=== PATIENT | female | born 1990 | race Hispanic/Latino ===

== ENCOUNTER 2016-11-17 11:55 | Emergency (ER) | payer SELFPAY ==
[2016-11-17] MEDS ORDERED: NORCO 5/325 PO ONE (18:00)
--- NOTE | 2016-11-17 18:31 | Emergency Department Report ---
Upper Extremity - HPI Chief Complaint: Extremity Injury, Upper Stated Complaint: SWOLLEN LEFT ARM Time Seen by Provider: 11/17/16 17:23 Upper Extremity: Left Arm (pain and left inner arm) Severity: moderate Symptoms: Yes Pain with Movement, Yes Swelling, No Deformity, No Limited Range of Movement, No Numbness, No Weakness, No Bruising/Ecchymosis, No Laceration or Abrasion Other History: 26-year-old female past medical history cholecystectomy presents with complaint of pain to the left inner bicep region. Patient states she had control implant placed 2 weeks ago and has been experiencing intermittent pain radiating from the left bicep downward over the last 2 weeks. Denies any fevers chills no redness of skin no pus drainage. ED Review of Systems ROS: Stated complaint: SWOLLEN LEFT ARM Other details as noted in HPI Constitutional: denies: chills, fever Eyes: denies: eye pain, eye discharge, vision change ENT: denies: ear pain, throat pain Respiratory: denies: cough, shortness of breath, wheezing Cardiovascular: denies: chest pain, palpitations Endocrine: no symptoms reported Gastrointestinal: denies: abdominal pain, nausea, diarrhea Genitourinary: denies: urgency, dysuria, discharge Musculoskeletal: denies: back pain, joint swelling, arthralgia Skin: denies: rash, lesions Neurological: denies: headache, weakness, paresthesias Psychiatric: denies: anxiety, depression Hematological/Lymphatic: denies: easy bleeding, easy bruising ED Past Medical Hx - Past Medical History Hx Hypertension: No Hx Congestive Heart Failure: No Hx Diabetes: No Hx Deep Vein Thrombosis: No Hx GERD: Yes Hx Renal Disease: No Hx Sickle Cell Disease: No Hx Headaches / Migraines: Yes (MIGRAINES) Hx Seizures: No Hx Asthma: No Hx COPD: No Hx HIV: No - Surgical History Hx Cholecystectomy: Yes Additional Surgical History: laparoscopy, lipoma removed from lower back - Social History Smoking Status: Never Smoker Substance Use Type: Prescribed - Medications Home Medications: Home Medications Medication Instructions Recorded Confirmed Last Taken Type Ibuprofen [Motrin] 800 mg PO Q8HR PRN #30 tablet 11/07/15 Unknown Rx traMADol [Ultram 50 MG tab] 50 mg PO Q6HR PRN #20 tablet 11/07/15 Unknown Rx Naproxen [Naprosyn TAB] 500 mg PO BID PRN #25 tablet 11/17/16 Unknown Rx traMADol [Ultram 50 MG tab] 50 mg PO Q6HR PRN #10 tablet 11/17/16 Unknown Rx Upper Extremity Exam - Exam General: Vital signs noted. No distress. Alert and acting appropriately. Head and Torso: No HEENT Abnormality, No Neck Tenderness, No Chest/Lungs Abnormality, No Abdominal Tenderness, No Back Tenderness Shoulder Exam: Yes Normal Range of Motion in Shoulder, No Shoulder Tenderness, No Clavicle Tenderness, No Shoulder Deformity, No AC Joint Tenderness Arm Exam: Yes Arm/Humerus Tenderness (pain and left inner bicep region no visible signs of erythema no visible abscess), No Arm Deformity Elbow: No Elbow Tenderness, No Normal Range of Motion in Elbow, No Elbow Deformity Forearm: No Forearm Tenderness, No Forearm Deformity, No Pain with Pronation, No Pain with Supination Wrist: Yes Normal ROM in Wrist, No Wrist Tenderness, No Wrist Deformity, No Snuffbox Tenderness, No Pain with Axial Thumb Compression Hand: Yes Normal ROM in Digit(s), No Hand Tenderness, No Hand Deformity, No Digit Tenderness, No Digit(s) Deformity, No Tendon Dysfunction CMS Exam: Yes Normal Distal Pulses, Yes Normal Capillary Refill, No Broken Skin , No Normal Distal Sensation Front/Back of Body, Lg (Color): 1 - Mild pain on palpation here NO palpable fluctuance ED Course Vital Signs 11/17/16 13:52 Temperature 98.5 F Pulse Rate 83 Respiratory 16 Rate Blood Pressure 123/85 O2 Sat by Pulse 100 Oximetry ED Medical Decision Making - Medical Decision Making A/P: Pain associated with foreign body/left bicep implant 1-x-ray shows implant at level of the left inner bicep. Implant looks intact. 2-naproxen when necessary prefer pain short course tramadol for severe pain 3-advised patient to return to the ED if she experiences any pus drainage redness fever chills associated with arm pain. Range of motion left arm fully intact 4- referral for left upper extremity or in the morning. Patient has low well score but since she has mild swelling and left arm was sent for outpatient Doppler Critical care attestation.: If time is entered above; I have spent that time in minutes in the direct care of this critically ill patient, excluding procedure time. ED Disposition Clinical Impression: Left upper arm pain Disposition: DISCHARGED TO HOME OR SELFCARE Is pt being admited?: No Does the pt Need Aspirin: No Condition: Stable Instructions: Musculoskeletal Pain (ED) Additional Instructions: Patient advised to return to [facility] tomorrow with order for left upper extremity duplex Prescriptions: Naproxen [Naprosyn TAB] 500 mg PO BID PRN #25 tablet PRN Reason: Pain traMADol [Ultram 50 MG tab] 50 mg PO Q6HR PRN #10 tablet PRN Reason: Pain Referrals: [facility] [Provider Group] - 3-5 Days Time of Disposition: 19:53
[2016-11-17 22:15] VITALS: BP 126/86
--- NOTE | 2016-11-18 08:11 | XRay Report ---
LEFT HUMERUS TWO VIEWS: 11/17/16 17:59:00 CLINICAL: Swelling at site of control insertion. FINDINGS: No fracture or dislocation. Normal alignment at the shoulder and elbow. An implanted control device is identified in the medial distal soft tissues of the upper arm. No soft tissue air. IMPRESSION: Negative with a control implant in the soft tissues.
== END 2016-11-17 22:15 | disposition home or self-care (01) ==
LOC: ED 11:55
DX: M79.622 Pain in left upper arm (principal); K21.9 Gastro-esophageal reflux disease without esophagitis; G43.909 Migraine, unspecified, not intractable, without status migrainosus; Z90.49 Acquired absence of other specified parts of digestive tract

== ENCOUNTER 2017-02-09 16:42 | Emergency (ER) | payer MEDICAID ==
[2017-02-09] MEDS: NACL 0.9% 1000 ML 1,000 ML IV ONE (20:26)
[2017-02-09 20:42] LABS: Basophils % (Auto) 1.1 % (0.0-1.8); Eosinophils % (Auto) 1.4 % (0.0-4.3); Hematocrit 39.7 % (30.3-42.9); Hemoglobin 13.9 gm/dl (10.1-14.3); Mean Corpuscular HGB Conc 35 % (30-34); Mean Corpuscular Hemoglobin 31 pg (28-32); Mean Corpuscular Volume 89 fl (79-97); Platelet Count 245 K/mm3 (140-440); Red Blood Count 4.46 M/mm3 (3.65-5.03); Red Cell Distribution Width 13.1 % (13.2-15.2); White Blood Count 9.9 K/mm3 (4.5-11.0)
[2017-02-09 21:15] LABS: Anion Gap 15 mmol/L; Blood Urea Nitrogen 8 mg/dL (7-17); Calcium 9.5 mg/dL (8.4-10.2); Carbon Dioxide 26 mmol/L (22-30); Chloride 104.9 mmol/L (98-107); Glucose 88 mg/dL (65-100); Potassium 3.8 mmol/L (3.6-5.0); Sodium 142 mmol/L (137-145)
[2017-02-09] MEDS: REGLAN IV ONE (21:40)
[2017-02-09] MEDS: BENADRYL IV ONE (21:40)
[2017-02-09] MEDS: TORADOL IVP ONE (21:40)
--- NOTE | 2017-02-09 23:09 | Emergency Department Report ---
ED Headache HPI - General Chief Complaint: Headache Stated Complaint: POSS ALLERGIC REACTION/NEW MEDS Source: patient, RN notes reviewed Exam Limitations: no limitations - History of Present Illness Initial Comments: 26 year old female presents to ED with migraine classical headaches. patient states she has history of migraines but is currently on no medication. patient states she also has N/V and photophobia today and that is classical of her typical migraines. patient states this is not the worst headache of her life. patient also states she just started Metformin prescribed to her by her PCP for weight loss. patient is stable, neurologically intact and in no acute distress. Timing/Duration: 24 hours, constant Quality: moderate Head Injury Location: frontal, occipital Recent Head Trauma: chronic headaches Modifying Factors: improves with: exposure to light Associated Symptoms: nausea/vomiting. denies: confusion, fatigue, facial pain, fever/chills, loss of consciousness, numbness in legs/feet, seizures, stiff neck , vision changes, weakness Allergies/Adverse Reactions: Allergies No Known Allergies Allergy (Verified 11/07/15 11:10) Home Medications: Ambulatory Orders Ibuprofen [Motrin] 800 mg PO Q8HR PRN #30 tablet 11/07/15 traMADol [Ultram 50 MG tab] 50 mg PO Q6HR PRN #20 tablet 11/07/15 Naproxen [Naprosyn TAB] 500 mg PO BID PRN #25 tablet 11/17/16 traMADol [Ultram 50 MG tab] 50 mg PO Q6HR PRN #10 tablet 11/17/16 Ketorolac [Toradol] 10 mg PO Q6H PRN #20 tablet 02/09/17 Metoclopramide [Reglan] 10 mg PO BID #10 tab 02/09/17 ED Review of Systems ROS: Stated complaint: POSS ALLERGIC REACTION/NEW MEDS Other details as noted in HPI Constitutional: denies: chills, fever Eyes: denies: eye pain, eye discharge, vision change ENT: denies: ear pain, throat pain Respiratory: denies: cough, shortness of breath, wheezing Cardiovascular: denies: chest pain, palpitations Endocrine: no symptoms reported Gastrointestinal: nausea, vomiting. denies: abdominal pain, diarrhea Genitourinary: denies: urgency, dysuria, discharge Musculoskeletal: denies: back pain, joint swelling, arthralgia Skin: denies: rash, lesions Neurological: headache. denies: weakness, numbness, paresthesias, confusion, abnormal gait, vertigo Psychiatric: denies: anxiety, depression Hematological/Lymphatic: denies: easy bleeding, easy bruising ED Past Medical Hx - Past Medical History Hx Hypertension: No Hx Congestive Heart Failure: No Hx Diabetes: No Hx Deep Vein Thrombosis: No Hx GERD: Yes Hx Renal Disease: No Hx Sickle Cell Disease: No Hx Headaches / Migraines: Yes (MIGRAINES) Hx Seizures: No Hx Asthma: No Hx COPD: No Hx HIV: No - Surgical History Hx Cholecystectomy: Yes Additional Surgical History: laparoscopy, lipoma removed from lower back - Social History Smoking Status: Never Smoker Substance Use Type: None - Medications Home Medications: Home Medications Medication Instructions Recorded Confirmed Last Taken Type Ibuprofen [Motrin] 800 mg PO Q8HR PRN #30 tablet 11/07/15 Unknown Rx traMADol [Ultram 50 MG tab] 50 mg PO Q6HR PRN #20 tablet 11/07/15 Unknown Rx Naproxen [Naprosyn TAB] 500 mg PO BID PRN #25 tablet 11/17/16 Unknown Rx traMADol [Ultram 50 MG tab] 50 mg PO Q6HR PRN #10 tablet 11/17/16 Unknown Rx Ketorolac [Toradol] 10 mg PO Q6H PRN #20 tablet 02/09/17 Unknown Rx Metoclopramide [Reglan] 10 mg PO BID #10 tab 02/09/17 Unknown Rx ED Physical Exam - General Limitations: No Limitations General appearance: alert, in no apparent distress - Head Head exam: Present: atraumatic, normocephalic - Eye Eye exam: Present: normal appearance - ENT ENT exam: Present: mucous membranes moist - Neck Neck exam: Present: normal inspection - Respiratory Respiratory exam: Present: normal lung sounds bilaterally. Absent: respiratory distress, wheezes - Cardiovascular Cardiovascular Exam: Present: regular rate, normal rhythm. Absent: systolic murmur, diastolic murmur, rubs, gallop - GI/Abdominal GI/Abdominal exam: Present: soft, normal bowel sounds. Absent: distended, tenderness - Extremities Exam Extremities exam: Present: normal inspection - Back Exam Back exam: Present: normal inspection, full ROM - Neurological Exam Neurological exam: Present: alert, oriented X3, normal gait - Expanded Neurological Exam Expanded Neurological exam: Absent: innattentive Patient oriented to: Present: person, place, time Speech: Present: fluid speech Cranial nerves: EOM's Intact: Normal, Tongue Deviation: Normal Cerebellar function: Finger to Nose: Normal Upper motor neuron: Pronator Drift: Normal Sensory exam: Upper Extremity Light Touch: Normal, Lower Extremity Light Touch: Normal Motor strength exam: RUE: 5, LUE: 5, RLE: 5, LLE: 5 DTR: knee (R): 2+, knee (L): 2+ Best Eye Response ([place]): (4) open spontaneously Best Motor Response ([place]): (6) obeys commands Best Verbal Response ([place]): (5) oriented Iza Total: 15 - Psychiatric Psychiatric exam: Present: normal affect, normal mood - Skin Skin exam: Present: warm, dry, intact, normal color. Absent: rash ED Course Vital Signs 02/09/17 02/09/17 16:46 21:40 Temperature 98.4 F Pulse Rate 92 H Respiratory 16 20 Rate Blood Pressure 131/88 O2 Sat by Pulse 98 Oximetry ED Medical Decision Making - Lab Data Result diagrams: 02/09/17 20:32 02/09/17 20:32 Labs 02/09/17 02/09/17 02/09/17 20:32 20:32 20:32 WBC 9.9 RBC 4.46 Hgb 13.9 Hct 39.7 MCV 89 MCH 31 MCHC 35 H RDW 13.1 L Plt Count 245 Lymph % (Auto) 30.7 [place] % (Auto) 6.6 Eos % (Auto) 1.4 Baso % (Auto) 1.1 Lymph # 3.0 [place] # 0.6 Eos # 0.1 Baso # 0.1 Seg Neutrophils % 60.2 Seg Neutrophils # 5.9 Sodium 142 Potassium 3.8 Chloride 104.9 Carbon Dioxide 26 Anion Gap 15 BUN 8 Creatinine 0.5 L Estimated GFR > 60 BUN/Creatinine Ratio 16.00 Glucose 88 Calcium 9.5 HCG, Qual Negative - Medical Decision Making 26 year old female presents to ED with migraine. patient has resolved pain on re examination after IV fluids, IV toradol, benadryl, reglan. patient has neg preg test. patient is stable, neurologically intact and in no acute distress. Critical care attestation.: If time is entered above; I have spent that time in minutes in the direct care of this critically ill patient, excluding procedure time. ED Disposition Clinical Impression: Migraine Qualifiers: Migraine type: with aura Status migrainosus presence: without status migrainosus Intractability: not intractable Qualified Code(s): G43.109 - Migraine with aura, not intractable, without status migrainosus Disposition: TO HOME OR SELFCARE Is pt being admited?: No Does the pt Need Aspirin: No Condition: Stable Instructions: Migraine Headache (ED) Prescriptions: Ketorolac [Toradol] 10 mg PO Q6H PRN #20 tablet PRN Reason: Pain Metoclopramide [Reglan] 10 mg PO BID #10 tab Referrals: MIREYA FONG MD [Primary Care Provider] - 3-5 Days Forms: Work/School Release Form(ED)
[2017-02-09 23:12] VITALS: BP 132/82
== END 2017-02-10 00:05 | disposition home or self-care (01) ==
LOC: ED 16:42
DX: G43.109 Migraine with aura, not intractable, without status migrainosus (principal); K21.9 Gastro-esophageal reflux disease without esophagitis
CPT/HCPCS: 36415; 80048; 84703; 85025; 96361; 96374; 96375; 99283; J1200; J1885; J2765; J7030

== ENCOUNTER 2018-09-06 14:20 | Emergency (ER) | payer MEDICAID ==
--- NOTE | 2018-09-06 14:57 | Emergency Department Report ---
Blank Doc - Documentation Documentation: 28-year-old female that presents with pelvic pain and bilateral legs weakness. Stated has vagianl discharge. Denies any vaginal bleeding or urinary symptoms. Denies any other complaints or symptoms. This initial assessment diagnostic orders/clinical plan/treatment(s) is/are subject to change based on patient's health status, clinical progression and re- assessment by fellow clinical providers in the ED. Further treatment and workup at subsequent clinical providers discretion. Patient/guardians urged not to elope from ED s their condition may be serious if not clinically assessed and managed. Initial orders include: 1-Patient sent to [facility] for further evaluation and treatment 2- Labs 3- UA 4-wet prep
[2018-09-06 15:27] LABS: Basophils # (Auto) 0.1 K/mm3 (0.0-0.1); Basophils % (Auto) 1.2 % (0.0-1.8); Eosinophils # (Auto) 0.1 K/mm3 (0.0-0.4); Eosinophils % (Auto) 1.1 % (0.0-4.3); Hematocrit 42.3 % (30.3-42.9); Hemoglobin 14.9 gm/dl (10.1-14.3); Lymphocytes # (Auto) 2.5 K/mm3 (1.2-5.4); Lymphocytes % (Auto) 25.4 % (13.4-35.0); Mean Corpuscular HGB Conc 35 % (30-34); Mean Corpuscular Volume 89 fl (79-97); Monocytes # (Auto) 0.7 K/mm3 (0.0-0.8); Monocytes % (Auto) 6.7 % (0.0-7.3); Platelet Count 286 K/mm3 (140-440); Red Blood Count 4.77 M/mm3 (3.65-5.03); Red Cell Distribution Width 13.2 % (13.2-15.2)
[2018-09-06 16:10] LABS: BUN/Creatinine Ratio 15; Blood Urea Nitrogen 9 mg/dL (7-17); Calcium 9.6 mg/dL (8.4-10.2); Hemolysis Index 101
[2018-09-06 16:19] LABS: Bacteria,Urine 1+ /HPF (Negative); Bilirubin,Urine NEG (Negative); Blood,Urine SM (Negative); Color,Urine Yellow (Yellow); Protein,Urine <15 mg/dL mg/dL (Negative); Urobilinogen,Urine < 2.0 mg/dL (<2.0)
[2018-09-06 16:20] LABS: Alanine Aminotransferase 33 units/L (7-56)
--- NOTE | 2018-09-06 19:13 | Emergency Department Report ---
ED Female HPI - General Chief complaint: Abdominal Pain Stated complaint: PELVIC PAIN/LEG PAIN Time Seen by Provider: 09/06/18 14:55 Source: patient Mode of arrival: Ambulatory Limitations: No Limitations - History of Present Illness Initial comments: This is a 28-year-old female who presents with vaginal discharge and pelvic pain since yesterday. Patient reports pain is sharp sensation that is intermittent. Her last menstrual period was 11/03/2016 . She also complains of discomfort where nexplanon control implant is on left upper extremity. Patient states she is sexually active, and only one partner. She denies frequency, urgency, dysuria or vaginal bleeding. MD Complaint: vaginal discharge, pelvic pain Onset/Timin -: days(s) Location: suprapubic Radiation: non-radiating Severity: moderate Severity scale (0 -10): 7 Quality: stabbing Consistency: intermittent Improves with: none Worsens with: none Are you Now?: No Last Menstrual Period: 11/03/16 (implanted control) EDC: 08/10/17 Associated Symptoms: vaginal discharge - Related Data Sexually active: Yes : 3 Para: 3 A: 0 Previous Rx's Medication Instructions Recorded Last Taken Type Ibuprofen [Motrin] 800 mg PO Q8HR PRN #30 tablet 11/07/15 Unknown Rx traMADol [Ultram 50 MG tab] 50 mg PO Q6HR PRN #20 tablet 11/07/15 Unknown Rx Naproxen [Naprosyn TAB] 500 mg PO BID PRN #25 tablet 11/17/16 Unknown Rx traMADol [Ultram 50 MG tab] 50 mg PO Q6HR PRN #10 tablet 11/17/16 Unknown Rx Ketorolac [Toradol] 10 mg PO Q6H PRN #20 tablet 02/09/17 Unknown Rx Metoclopramide [Reglan] 10 mg PO BID #10 tab 02/09/17 Unknown Rx Allergies Allergy/AdvReac Type Severity Reaction Status Date / Time No Known Allergies Allergy Verified 11/07/15 11:10 ED Review of Systems ROS: Stated complaint: PELVIC PAIN/LEG PAIN Other details as noted in HPI Constitutional: denies: chills, fever Respiratory: denies: cough, shortness of breath, wheezing Cardiovascular: denies: chest pain, palpitations Gastrointestinal: abdominal pain. denies: nausea, diarrhea Genitourinary: discharge. denies: urgency, dysuria Musculoskeletal: denies: back pain, joint swelling, arthralgia Skin: denies: rash, lesions Neurological: denies: headache, weakness, paresthesias Psychiatric: denies: anxiety, depression ED Past Medical Hx - Past Medical History Hx Hypertension: No Hx Congestive Heart Failure: No Hx Diabetes: No Hx Deep Vein Thrombosis: No Hx GERD: Yes Hx Renal Disease: No Hx Sickle Cell Disease: No Hx Headaches / Migraines: Yes (MIGRAINES) Hx Seizures: No Hx Asthma: No Hx COPD: No Hx HIV: No - Surgical History Hx Cholecystectomy: Yes Additional Surgical History: laparoscopy, lipoma removed from lower back. BC implant-2017 - Social History Smoking Status: Never Smoker Substance Use Type: None - Medications Home Medications: Home Medications Medication Instructions Recorded Confirmed Last Taken Type Ibuprofen [Motrin] 800 mg PO Q8HR PRN #30 tablet 11/07/15 Unknown Rx traMADol [Ultram 50 MG tab] 50 mg PO Q6HR PRN #20 tablet 11/07/15 Unknown Rx Naproxen [Naprosyn TAB] 500 mg PO BID PRN #25 tablet 11/17/16 Unknown Rx traMADol [Ultram 50 MG tab] 50 mg PO Q6HR PRN #10 tablet 11/17/16 Unknown Rx Ketorolac [Toradol] 10 mg PO Q6H PRN #20 tablet 02/09/17 Unknown Rx Metoclopramide [Reglan] 10 mg PO BID #10 tab 02/09/17 Unknown Rx ED Physical Exam - General Limitations: No Limitations General appearance: alert, in no apparent distress, obese - Respiratory Respiratory exam: Present: normal lung sounds bilaterally. Absent: respiratory distress - Cardiovascular Cardiovascular Exam: Present: regular rate, normal rhythm. Absent: systolic murmur, diastolic murmur, rubs, gallop - GI/Abdominal GI/Abdominal exam: Present: soft, normal bowel sounds. Absent: distended, tend erness, guarding, rebound, rigid, organomegaly, mass - External exam: Present: normal external exam Speculum exam: Present: erythema, vaginal discharge (malodorous greenish discharge). Absent: cervical discharge, vaginal bleeding, foreign body, tissue, laceration Bi-manual exam: Present: cervical motion tendernes - Back Exam Back exam: Absent: CVA tenderness (R), CVA tenderness (L) - Neurological Exam Neurological exam: Present: alert, oriented X3 - Psychiatric Psychiatric exam: Present: normal affect, normal mood - Skin Skin exam: Present: warm, dry, intact, normal color. Absent: rash ED Course Vital Signs 09/06/18 09/06/18 09/06/18 14:21 14:57 19:25 Temperature 97.8 F 98 F 98.6 F Pulse Rate 107 H 104 H 93 H Respiratory 18 18 16 Rate Blood Pressure 137/87 126/88 Blood Pressure 137/87 [Right] O2 Sat by Pulse 98 98 99 Oximetry 09/06/18 20:04 Temperature Pulse Rate Respiratory 16 Rate Blood Pressure Blood Pressure [Right] O2 Sat by Pulse 99 Oximetry ED Medical Decision Making - Lab Data Result diagrams: 09/06/18 15:11 09/06/18 15:11 Lab Results 09/06/18 09/06/18 09/06/18 Range/Units 15:11 15:11 Unknown WBC 9.9 (4.5-11.0) K/mm3 RBC 4.77 (3.65-5.03) M/mm3 Hgb 14.9 H (10.1-14.3) gm/dl Hct 42.3 (30.3-42.9) % MCV 89 (79-97) fl MCH 31 (28-32) pg MCHC 35 H (30-34) % RDW 13.2 (13.2-15.2) % Plt Count 286 (140-440) K/mm3 Lymph % (Auto) 25.4 (13.4-35.0) % [place] % (Auto) 6.7 (0.0-7.3) % Eos % (Auto) 1.1 (0.0-4.3) % Baso % (Auto) 1.2 (0.0-1.8) % Lymph # 2.5 (1.2-5.4) K/mm3 [place] # 0.7 (0.0-0.8) K/mm3 Eos # 0.1 (0.0-0.4) K/mm3 Baso # 0.1 (0.0-0.1) K/mm3 Seg Neutrophils % 65.6 (40.0-70.0) % Seg Neutrophils # 6.5 (1.8-7.7) K/mm3 Sodium 141 (137-145) mmol/L Potassium 4.2 (3.6-5.0) mmol/L Chloride 103.4 (98-107) mmol/L Carbon Dioxide 24 (22-30) mmol/L Anion Gap 18 mmol/L BUN 9 (7-17) mg/dL Creatinine 0.6 L (0.7-1.2) mg/dL Estimated GFR > 60 ml/min BUN/Creatinine Ratio 15 % Glucose 97 (65-100) mg/dL Calcium 9.6 (8.4-10.2) mg/dL Total Bilirubin 0.70 (0.1-1.2) mg/dL AST 29 (5-40) units/L ALT 33 (7-56) units/L Alkaline Phosphatase 85 (35-129) units/L Total Protein 7.5 (6.3-8.2) g/dL Albumin 4.0 (3.9-5) g/dL Albumin/Globulin Ratio 1.1 % Urine Color Yellow (Yellow) Urine Turbidity Clear (Clear) Urine pH 5.0 (5.0-7.0) Ur Specific [place] 1.012 (1.003-1.030) Urine Protein <15 mg/dl (Negative) mg/dL Urine Glucose (UA) Neg (Negative) mg/dL Urine Ketones Neg (Negative) mg/dL Urine Blood Sm (Negative) Urine Nitrite Neg (Negative) Urine Bilirubin Neg (Negative) Urine Urobilinogen < 2.0 (<2.0) mg/dL Ur Leukocyte Esterase Neg (Negative) Urine WBC (Auto) 1.0 (0.0-6.0) /HPF Urine RBC (Auto) 5.0 (0.0-6.0) /HPF U Epithel Cells (Auto) 1.0 (0-13.0) /HPF Urine Bacteria (Auto) 1+ (Negative) /HPF Urine HCG, Qual (Negative) 09/06/18 Range/Units Unknown WBC (4.5-11.0) K/mm3 RBC (3.65-5.03) M/mm3 Hgb (10.1-14.3) gm/dl Hct (30.3-42.9) % MCV (79-97) fl MCH (28-32) pg MCHC (30-34) % RDW (13.2-15.2) % Plt Count (140-440) K/mm3 Lymph % (Auto) (13.4-35.0) % [place] % (Auto) (0.0-7.3) % Eos % (Auto) (0.0-4.3) % Baso % (Auto) (0.0-1.8) % Lymph # (1.2-5.4) K/mm3 [place] # (0.0-0.8) K/mm3 Eos # (0.0-0.4) K/mm3 Baso # (0.0-0.1) K/mm3 Seg Neutrophils % (40.0-70.0) % Seg Neutrophils # (1.8-7.7) K/mm3 Sodium (137-145) mmol/L Potassium (3.6-5.0) mmol/L Chloride (98-107) mmol/L Carbon Dioxide (22-30) mmol/L Anion Gap mmol/L BUN (7-17) mg/dL Creatinine (0.7-1.2) mg/dL Estimated GFR ml/min BUN/Creatinine Ratio % Glucose (65-100) mg/dL Calcium (8.4-10.2) mg/dL Total Bilirubin (0.1-1.2) mg/dL AST (5-40) units/L ALT (7-56) units/L Alkaline Phosphatase (35-129) units/L Total Protein (6.3-8.2) g/dL Albumin (3.9-5) g/dL Albumin/Globulin Ratio % Urine Color (Yellow) Urine Turbidity (Clear) Urine pH (5.0-7.0) Ur Specific [place] (1.003-1.030) Urine Protein (Negative) mg/dL Urine Glucose (UA) (Negative) mg/dL Urine Ketones (Negative) mg/dL Urine Blood (Negative) Urine Nitrite (Negative) Urine Bilirubin (Negative) Urine Urobilinogen (<2.0) mg/dL Ur Leukocyte Esterase (Negative) Urine WBC (Auto) (0.0-6.0) /HPF Urine RBC (Auto) (0.0-6.0) /HPF U Epithel Cells (Auto) (0-13.0) /HPF Urine Bacteria (Auto) (Negative) /HPF Urine HCG, Qual Negative (Negative) - Medical Decision Making This is a 28-year-old female who presents with vaginal discharge and pelvic pain for 1 day. Patient was examined by me. Vitals are stable and in no acute distress. Labs ordered and pelvic exam. Wet prep negative for Trichomonas, clue cells, a niece. Gonorrhea and chlamydia pending. Ultrasound obtained and dictated by room radiologist. FINAL Study within normal limits. 1.2 centimeter left ovarian cyst noted. Empirically treated with Rocephin 250 mg IM and azithromycin 1 g by mouth. Ovarian cyst, follow up with geoscientist. Discharged home in stable condition. Discussed prevention options. F/U with PCP or Health Department. Critical care attestation.: If time is entered above; I have spent that time in minutes in the direct care of this critically ill patient, excluding procedure time. ED Disposition Clinical Impression: Vaginal discharge, Pelvic pain Ovarian cyst Qualifiers: Laterality: left Qualified Code(s): N83.202 - Unspecified ovarian cyst, left side Disposition: - TO HOME OR SELFCARE Is pt being admited?: No Does the pt Need Aspirin: No Condition: Stable Instructions: Abdominal Pain (ED), Ovarian Cyst (ED) Additional Instructions: Follow-up with a geoscientist for continued care of ovarian cyst. Referrals: [facility] [Outside] - 3-5 Days [facility] [Provider Group] - 3-5 Days [facility] [Provider Group] - 3-5 Days [facility] [Provider Group] - 3-5 Days Time of Disposition: 22:44
[2018-09-06 19:25] LABS: HCG Qualitative,Urine Negative (Negative)
--- NOTE | 2018-09-06 22:15 | Ultrasound Report ---
FINAL REPORT EXAM: US TRANSVAGINAL HISTORY: pelvic pain TECHNIQUE: Ultrasound pelvis transvaginal PRIORS: None. FINDINGS: Uterus measures 7.8 x 3.4 x 4.6 centimeters There is no focal myometrial abnormality identified. Endometrial thickness is 0.21 centimeters. Right ovary is 2.0 x 1.0 x 2.3 centimeters the left ovary is 0.2 by 1.4 x 1.5 centimeters. 1.2 centim eter left ovarian cyst likely follicular. No free fluid identified in the pelvis. IMPRESSION: Study within normal limits. 1.2 centimeter left ovarian cyst noted
--- NOTE | 2018-09-06 22:16 | Ultrasound Report ---
FINAL REPORT EXAM: US PELVIC COMPLETE HISTORY: pelvic pain TECHNIQUE: Ultrasound pelvis transabdominal PRIORS: None. FINDINGS: Uterus measures 7.8 x 3.4 x 4.6 centimeters There is no focal myometrial abnormality identified. Endometrial thickness is 0.21 centimeters. Right ovary is 2.0 x 1.0 x 2.3 centimeters the left ovary is 0.2 by 1.4 x 1.5 centimeters. 1.2 centim eter left ovarian cyst likely follicular. No free fluid identified in the pelvis. IMPRESSION: Study within normal limits. 1.2 centimeter left ovarian cyst noted
[2018-09-06] MEDS ORDERED: ROCEPHIN IM ONE (22:45)
[2018-09-06] MEDS ORDERED: ZITHROMAX PO ONE (22:45)
[2018-09-06] MEDS ORDERED: XYLOCAINE 1% MPF 5 mL INFILTRATI ONE (22:45)
[2018-09-06 23:42] VITALS: BP 113/78
== END 2018-09-06 23:41 | disposition home or self-care (01) ==
LOC: ED 14:20
DX: N83.202 Unspecified ovarian cyst, left side (principal); K21.9 Gastro-esophageal reflux disease without esophagitis; G43.909 Migraine, unspecified, not intractable, without status migrainosus; Z90.49 Acquired absence of other specified parts of digestive tract
CPT/HCPCS: 36415; 76830; 76856; 80053; 81001; 81025; 85025; 87210; 87591; 96372; 99284; J0696

== ENCOUNTER 2019-03-23 17:30 | Emergency (ER) | payer MEDICAID ==
[2019-03-23 19:26] LABS: Basophils # (Auto) 0.1 K/mm3 (0.0-0.1); Basophils % (Auto) 0.7 % (0.0-1.8); Eosinophils # (Auto) 0.1 K/mm3 (0.0-0.4); Eosinophils % (Auto) 1.1 % (0.0-4.3); Hematocrit 47.1 % (30.3-42.9); Hemoglobin 16.1 gm/dl (10.1-14.3); Lymphocytes # (Auto) 2.9 K/mm3 (1.2-5.4); Lymphocytes % (Auto) 25.5 % (13.4-35.0); Mean Corpuscular HGB Conc 34 % (30-34); Mean Corpuscular Volume 90 fl (79-97); Monocytes # (Auto) 0.7 K/mm3 (0.0-0.8); Monocytes % (Auto) 5.8 % (0.0-7.3); Platelet Count 309 K/mm3 (140-440); Red Blood Count 5.21 M/mm3 (3.65-5.03); Red Cell Distribution Width 13.3 % (13.2-15.2)
[2019-03-23] MEDS ORDERED: NACL 0.9% 1000 ML 1,000 ML IV ONE (19:32)
[2019-03-23 19:36] LABS: Bacteria,Urine 1+ /HPF (Negative); Bilirubin,Urine NEG (Negative); Blood,Urine SM (Negative); Color,Urine Yellow (Yellow); Mucus,Urine 1+ /HPF; Protein,Urine <15 mg/dL mg/dL (Negative); Urobilinogen,Urine < 2.0 mg/dL (<2.0)
[2019-03-23 19:37] LABS: HCG Qualitative,Urine Negative (Negative)
[2019-03-23 19:41] LABS: BUN/Creatinine Ratio 16; Blood Urea Nitrogen 11 mg/dL (7-17); Calcium 9.7 mg/dL (8.4-10.2); Hemolysis Index 29
[2019-03-23] MEDS ORDERED: KEFLEX PO ONE (20:05)
[2019-03-23 20:10] LABS: Alanine Aminotransferase 36 units/L (7-56); Albumin 3.6 g/dL (3.9-5)
[2019-03-23 20:18] LABS: Bilirubin,Direct < 0.2 mg/dL (0-0.2)
--- NOTE | 2019-03-23 21:20 | XRay Report ---
CHEST PA AND LATERAL VIEWS INDICATION: weakness. COMPARISON: None. FINDINGS: Support devices: None. Heart: Within normal limits. Lungs/Pleura: No acute pulmonary or pleural findings. IMPRESSION: 1. No significant abnormality. Signer Name: Hernan Roche MD Signed: 03/23/2019 9:16 PM Workstation Name: [id number]
--- NOTE | 2019-03-23 21:20 | Emergency Department Report ---
ED General Adult HPI - General Chief complaint: Weakness Stated complaint: DIZZY/NAUSEA/HEADACHE Source: patient Mode of arrival: Ambulatory Limitations: No Limitations - History of Present Illness Initial comments: Patient is a 28-year-old Female with No past Medical History Presents to the ED with Complaint of Acute Onset since persistent diffuse body aches and pains, generalized weakness, lightheadedness, headache, back pain for the last 1 week, worse in the last 12 hours. Patient states that she went to donate plasma earlier but that her symptoms got worse and could not continue program. Patient denies syncope, chest pain, shortness of breath, fever, chills, sore throat, abdominal pain, dizziness, change in vision or vaginal bleeding. MD Complaint: Generalized weakness, lightheadedness, headache -: Sudden, hour(s) (12) Location: head, chest Radiation: non-radiation Severity scale (0 -10): 5 Quality: aching, dull Consistency: constant Improves with: none Worsens with: none Associated Symptoms: denies other symptoms, cough, headaches, loss of appetite, malaise, weakness. denies: confusion, chest pain, diaphoresis, fever/chills, nausea/vomiting, rash, seizure, shortness of breath, syncope Treatments Prior to Arrival: none - Related Data Previous Rx's Medication Instructions Recorded Last Taken Type Ibuprofen [Motrin] 800 mg PO Q8HR PRN #30 tablet 11/07/15 Unknown Rx traMADol [Ultram 50 MG tab] 50 mg PO Q6HR PRN #20 tablet 11/07/15 Unknown Rx Naproxen [Naprosyn TAB] 500 mg PO BID PRN #25 tablet 11/17/16 Unknown Rx traMADol [Ultram 50 MG tab] 50 mg PO Q6HR PRN #10 tablet 11/17/16 Unknown Rx Ketorolac [Toradol] 10 mg PO Q6H PRN #20 tablet 02/09/17 Unknown Rx Metoclopramide [Reglan] 10 mg PO BID #10 tab 02/09/17 Unknown Rx Ibuprofen [Motrin] 800 mg PO Q8HR PRN #20 tablet 03/23/19 Unknown Rx Meclizine [Antivert] 25 mg PO Q8H PRN #30 tablet 03/23/19 Unknown Rx cephALEXin [Keflex] 500 mg PO Q8HR #30 cap 03/23/19 Unknown Rx Allergies Allergy/AdvReac Type Severity Reaction Status Date / Time No Known Allergies Allergy Verified 11/07/15 11:10 ED Review of Systems ROS: Stated complaint: DIZZY/NAUSEA/HEADACHE Other details as noted in HPI Constitutional: malaise, weakness. denies: chills, fever Eyes: denies: eye pain, eye discharge, vision change ENT: other (frontal sinus headache and pressure). denies: ear pain, throat pain Respiratory: no symptoms reported. denies: cough, shortness of breath, SOB with exertion, SOB at rest, wheezing Cardiovascular: denies: chest pain, palpitations, dyspnea on exertion, edema, syncope, paroxysmal nocturnal dyspnea Endocrine: no symptoms reported Gastrointestinal: denies: abdominal pain, nausea, diarrhea, constipation, hematemesis, hematochezia Genitourinary: denies: urgency, dysuria, discharge Musculoskeletal: arthralgia, myalgia. denies: back pain, joint swelling Skin: denies: rash, lesions Neurological: headache. denies: weakness, paresthesias Psychiatric: denies: anxiety, depression Hematological/Lymphatic: denies: easy bleeding, easy bruising ED Past Medical Hx - Past Medical History Previous Medical History?: Yes Hx Hypertension: No Hx Congestive Heart Failure: No Hx Diabetes: No Hx Deep Vein Thrombosis: No Hx GERD: Yes Hx Renal Disease: No Hx Sickle Cell Disease: No Hx Headaches / Migraines: Yes (MIGRAINES) Hx Seizures: No Hx Asthma: No Hx COPD: No Hx HIV: No - Surgical History Past Surgical History?: Yes Hx Cholecystectomy: Yes Additional Surgical History: laparoscopy, lipoma removed from lower back. BC implant-2017 - Social History Smoking Status: Never Smoker Substance Use Type: Marijuana - Medications Home Medications: Home Medications Medication Instructions Recorded Confirmed Last Taken Type Ibuprofen [Motrin] 800 mg PO Q8HR PRN #30 tablet 11/07/15 Unknown Rx traMADol [Ultram 50 MG tab] 50 mg PO Q6HR PRN #20 tablet 11/07/15 Unknown Rx Naproxen [Naprosyn TAB] 500 mg PO BID PRN #25 tablet 11/17/16 Unknown Rx traMADol [Ultram 50 MG tab] 50 mg PO Q6HR PRN #10 tablet 11/17/16 Unknown Rx Ketorolac [Toradol] 10 mg PO Q6H PRN #20 tablet 02/09/17 Unknown Rx Metoclopramide [Reglan] 10 mg PO BID #10 tab 02/09/17 Unknown Rx Ibuprofen [Motrin] 800 mg PO Q8HR PRN #20 tablet 03/23/19 Unknown Rx Meclizine [Antivert] 25 mg PO Q8H PRN #30 tablet 03/23/19 Unknown Rx cephALEXin [Keflex] 500 mg PO Q8HR #30 cap 03/23/19 Unknown Rx ED Physical Exam - General Limitations: No Limitations General appearance: alert, in no apparent distress - Head Head exam: Present: atraumatic, normocephalic, normal inspection - Eye Eye exam: Present: normal appearance, PERRL, EOMI. Absent: scleral icterus, conjunctival injection, nystagmus, periorbital swelling, periorbital tenderness Pupils: Present: normal accommodation - ENT ENT exam: Present: normal exam, normal orophraynx, mucous membranes moist, TM's normal bilaterally, normal external ear exam - Neck Neck exam: Present: normal inspection, full ROM - Respiratory Respiratory exam: Present: normal lung sounds bilaterally. Absent: respiratory distress, wheezes, rales, stridor, chest wall tenderness, accessory muscle use, decreased breath sounds - Cardiovascular Cardiovascular Exam: Present: normal rhythm, tachycardia, normal heart sounds. Absent: systolic murmur, diastolic murmur, rubs, gallop - GI/Abdominal GI/Abdominal exam: Present: soft, normal bowel sounds. Absent: tenderness, guarding, hyperactive bowel sounds, hypoactive bowel sounds, organomegaly, mass - Rectal Rectal exam: Present: deferred - Extremities Exam Extremities exam: Present: normal inspection, full ROM, normal capillary refill - Back Exam Back exam: Present: normal inspection, full ROM. Absent: tenderness, CVA tenderness (R), CVA tenderness (L), muscle spasm, paraspinal tenderness, nicky tebral tenderness - Neurological Exam Neurological exam: Present: alert, oriented X3, CN II-XII intact, normal gait, reflexes normal - Psychiatric Psychiatric exam: Present: normal affect, normal mood, anxious - Skin Skin exam: Present: warm, dry, intact, normal color. Absent: rash ED Course Vital Signs 03/23/19 03/23/19 18:19 21:35 Temperature 97.9 F Pulse Rate 129 H 88 Respiratory 18 18 Rate Blood Pressure 127/89 Blood Pressure 117/74 [Right] O2 Sat by Pulse 97 99 Oximetry - Reevaluation(s) Reevaluation #1: 03/23/19 21:21 This is a 28-year-old female who presented to the ED with generalized weakness and malaise, headache and body aches with lightheadedness. In the ED, patient is alert and oriented 3 and is not in distress but tachycardic in triage. Lab test results were reviewed on significant for acute urinary tract infection and mild acute leukocytosis of 11,400. The EKG shows normal sinus rhythm with a ventricular rate of 90 bpm, and no ST or T-wave abnormalities. The rest of the left as it is outside of actionable. Chest x-ray shows no acute cardiopulmonary abdominal 80s. Patient was treated for pain, also given normal saline 1 L IV b olus and also treated in the ED with Keflex oral tablets for acute urinary tract infection. Patient was discharged home on medications including antibiotics for acute tract infection and pain medications and advised to follow-up with her primary care physician in 5-7 days for reevaluation or return to the ED immediately if symptoms get worse. 03/23/19 21:22 03/23/19 22:48 ED Medical Decision Making - Lab Data Result diagrams: 03/23/19 19:10 03/23/19 19:10 - EKG Data EKG shows normal: sinus rhythm Rate: normal - EKG Data Interpretation: normal EKG 03/23/19 22:49 EKG shows normal sinus rhythm with ventricular rate of 90 bpm, no ST or T-wave abnormalities. - Radiology Data Radiology results: report reviewed, image reviewed Chest x-ray shows no acute cardiopulmonary abnormalities - Medical Decision Making This is a 28-year-old female who presented to the ED with generalized weakness and malaise, headache and body aches with lightheadedness. In the ED, patient is alert and oriented 3 and is not in distress but tachycardic in triage. Lab test results were reviewed on significant for acute urinary tract infection and mild acute leukocytosis of 11,400. The rest of the left as it is outside of actionable. Chest x-ray shows no acute cardiopulmonary abdominal 80s. Patient was treated for pain, also given normal saline 1 L IV bolus and also treated in the ED with Keflex oral tablets for acute urinary tract infection. On reevaluation, patient felt much better, tachycardia resolved with treatment in the ED. Patient was discharged home on medications including antibiotics for acute tract infection and pain medications and advised to follow-up with her primary care physician in 5-7 days for reevaluation or return to the ED immediately if symptoms get worse. - Differential Diagnosis flu like symptoms; Acute UTI; acute URI; dehydration Critical care attestation.: If time is entered above; I have spent that time in minutes in the direct care of this critically ill patient, excluding procedure time. ED Disposition Clinical Impression: Intermittent lightheadedness, Acute urinary tract infection, Generalized weakness Disposition: TO HOME OR SELFCARE Is pt being admited?: No Does the pt Need Aspirin: No Condition: Stable Instructions: Dehydration (ED), Urinary Tract Infection in Women (ED), Weakness (ED), Lightheadedness (ED) Additional Instructions: Take medications with food, drink plenty of fluids and follow-up with your primary care physician in 5-7 days for reevaluation. Return to the ED immediately if symptoms get worse. Prescriptions: Meclizine [Antivert] 25 mg PO Q8H PRN #30 tablet PRN Reason: Vertigo cephALEXin [Keflex] 500 mg PO Q8HR #30 cap Ibuprofen [Motrin] 800 mg PO Q8HR PRN #20 tablet PRN Reason: Pain , Severe (7-10) Referrals: PRIMARY CARE, [Primary Care Provider] - 3-5 Days Time of Disposition: 21:25 Print Language: MALAGASY
[2019-03-23 23:31] VITALS: BP 123/81
== END 2019-03-23 23:05 | disposition home or self-care (01) ==
LOC: ED 17:30
DX: N39.0 Urinary tract infection, site not specified (principal); G43.909 Migraine, unspecified, not intractable, without status migrainosus; F12.90 Cannabis use, unspecified, uncomplicated; Z90.49 Acquired absence of other specified parts of digestive tract; Z79.899 Other long term (current) drug therapy
CPT/HCPCS: 36415; 71046; 80048; 80076; 81001; 81025; 83880; 84443; 84484; 85025; 87086; 93005; 93010; 96360; 99284; J7030

== ENCOUNTER 2020-05-24 16:04 | Emergency (ER) | payer MEDICAID ==
[2020-05-24 16:08] VITALS: BP 131/93
--- NOTE | 2020-05-24 16:09 | Event Note ---
ED Screening Note Date of service: 05/24/20 Time: 16:09 ED Screening Note: Patient complains of right flank pain x yesterday Sent here by her BONE DENSITY TECHNICIAN to rule out kidney infection/stone This initial assessment/diagnostic orders/clinical plan/treatment(s) is/are subject to change based on patients health status, clinical progression and re- assessment by fellow clinical providers in the ED. Further treatment and workup at subsequent clinical providers discretion. Patient/guardian urged not to elope from the ED as their condition may be serious if not clinically assessed and managed. Initial orders include: Lab
[2020-05-24 16:45] LABS: Basophils # (Auto) 0.1 K/mm3 (0.0-0.1); Basophils % (Auto) 0.9 % (0.0-1.8); Eosinophils # (Auto) 0.1 K/mm3 (0.0-0.4); Eosinophils % (Auto) 1.5 % (0.0-4.3); Hematocrit 40.8 % (30.3-42.9); Hemoglobin 14.9 gm/dl (10.1-14.3); Lymphocytes # (Auto) 2.7 K/mm3 (1.2-5.4); Lymphocytes % (Auto) 27.9 % (13.4-35.0); Mean Corpuscular HGB Conc 36 % (30-34); Mean Corpuscular Volume 89 fl (79-97); Monocytes # (Auto) 0.6 K/mm3 (0.0-0.8); Monocytes % (Auto) 6.4 % (0.0-7.3); Platelet Count 285 K/mm3 (140-440); Red Blood Count 4.58 M/mm3 (3.65-5.03); Red Cell Distribution Width 12.8 % (13.2-15.2)
[2020-05-24 16:51] LABS: Alanine Aminotransferase 50 units/L (7-56); Albumin 4.3 g/dL (3.9-5); BUN/Creatinine Ratio 15; Blood Urea Nitrogen 12 mg/dL (7-17); Calcium 9.6 mg/dL (8.4-10.2); Hemolysis Index 44
[2020-05-24] MEDS ORDERED: KETOROLAC 30 MG/1 ML INJ IM ONE (17:06)
[2020-05-24] MEDS ORDERED: oxyCODONE /ACETAMINOPHEN 5-325MG TAB PO ONE (17:06)
[2020-05-24] MEDS ORDERED: methylPREDNISolone Sod Succinate 125 MG/2 ML INJ IM ONE (17:06)
[2020-05-24] MEDS ORDERED: ONDANSETRON 4 MG ODT TAB PO ONE (17:18)
--- NOTE | 2020-05-24 17:18 | Emergency Department Report ---
ED General Adult HPI - General Chief complaint: Back Pain/Injury Stated complaint: LOWER BACK PAINS Time Seen by Provider: 05/24/20 16:05 Source: patient Mode of arrival: Ambulatory Limitations: No Limitations - History of Present Illness Initial comments: 29-year-old female presenting with chief complaint of right-sided lower back pain occasionally radiating around toward the groin, gradual onset yesterday without any injury. It is worse with movement but still persistent even at rest. She states that her TILE MOLDER sent her over to evaluate for kidney stone versus pyelonephritis. She does report some nausea but denies any vomiting, diarrhea, dysuria. Pain is moderately severe at times denies any numbness tingling bowel or bladder dysfunction - Related Data Previous Rx's Medication Instructions Recorded Last Taken Type Ibuprofen [Motrin] 800 mg PO Q8HR PRN #30 tablet 11/07/15 Unknown Rx traMADoL [Ultram 50 MG tab] 50 mg PO Q6HR PRN #10 tablet 11/17/16 Unknown Rx Ketorolac [Toradol] 10 mg PO Q6H PRN #20 tablet 02/09/17 Unknown Rx Metoclopramide [Reglan] 10 mg PO BID #10 tab 02/09/17 Unknown Rx Ibuprofen [Motrin] 800 mg PO Q8HR PRN #20 tablet 03/23/19 Unknown Rx Meclizine [Antivert] 25 mg PO Q8H PRN #30 tablet 03/23/19 Unknown Rx cephALEXin [Keflex] 500 mg PO Q8HR #30 cap 03/23/19 Unknown Rx Cyclobenzaprine [Flexeril] 10 mg PO TID PRN #15 tablet 05/24/20 Unknown Rx Naproxen [Naprosyn TAB] 500 mg PO BID PRN #20 tablet 05/24/20 Unknown Rx traMADoL [Ultram 50 MG tab] 50 mg PO Q6HR PRN #12 tablet 05/24/20 Unknown Rx Allergies Allergy/AdvReac Type Severity Reaction Status Date / Time No Known Allergies Allergy Verified 11/07/15 11:10 ED Review of Systems ROS: Stated complaint: LOWER BACK PAINS Other details as noted in HPI Comment: All other systems reviewed and negative Musculoskeletal: as per HPI ED Past Medical Hx - Past Medical History Hx Hypertension: No Hx Congestive Heart Failure: No Hx Diabetes: No Hx Deep Vein Thrombosis: No Hx GERD: Yes Hx Renal Disease: No Hx Sickle Cell Disease: No Hx Headaches / Migraines: Yes (MIGRAINES) Hx Seizures: No Hx Asthma: No Hx COPD: No Hx HIV: No - Surgical History Hx Cholecystectomy: Yes Additional Surgical History: laparoscopy, lipoma removed from lower back. BC implant-2017 - Social History Smoking Status: Never Smoker - Medications Home Medications: Home Medications Medication Instructions Recorded Confirmed Last Taken Type Ibuprofen [Motrin] 800 mg PO Q8HR PRN #30 tablet 11/07/15 Unknown Rx traMADoL [Ultram 50 MG tab] 50 mg PO Q6HR PRN #10 tablet 11/17/16 Unknown Rx Ketorolac [Toradol] 10 mg PO Q6H PRN #20 tablet 02/09/17 Unknown Rx Metoclopramide [Reglan] 10 mg PO BID #10 tab 02/09/17 Unknown Rx Ibuprofen [Motrin] 800 mg PO Q8HR PRN #20 tablet 03/23/19 Unknown Rx Meclizine [Antivert] 25 mg PO Q8H PRN #30 tablet 03/23/19 Unknown Rx cephALEXin [Keflex] 500 mg PO Q8HR #30 cap 03/23/19 Unknown Rx Cyclobenzaprine [Flexeril] 10 mg PO TID PRN #15 tablet 05/24/20 Unknown Rx Naproxen [Naprosyn TAB] 500 mg PO BID PRN #20 tablet 05/24/20 Unknown Rx traMADoL [Ultram 50 MG tab] 50 mg PO Q6HR PRN #12 tablet 05/24/20 Unknown Rx ED Physical Exam - General Limitations: No Limitations General appearance: alert, in no apparent distress - Head Head exam: Present: atraumatic, normocephalic - Eye Eye exam: Present: normal appearance - ENT ENT exam: Present: mucous membranes moist - Neck Neck exam: Present: normal inspection - Respiratory Respiratory exam: Present: normal lung sounds bilaterally. Absent: respiratory distress - Cardiovascular Cardiovascular Exam: Present: regular rate, normal rhythm. Absent: systolic murmur, diastolic murmur, rubs, gallop - GI/Abdominal GI/Abdominal exam: Present: soft, normal bowel sounds. Absent: distended, tenderness, guarding, rebound - Extremities Exam Extremities exam: Present: normal inspection - Back Exam Back exam: Present: normal inspection, other (Tenderness over the right sciatic notch). Absent: CVA tenderness (R), CVA tenderness (L) - Neurological Exam Neurological exam: Present: alert, oriented X3, normal gait, reflexes normal. Absent: motor sensory deficit - Psychiatric Psychiatric exam: Present: normal affect, normal mood - Skin Skin exam: Present: warm, dry, intact, normal color. Absent: rash ED Course Vital Signs 05/24/20 05/24/20 05/24/20 16:05 17:16 17:19 Temperature 97.8 F Pulse Rate 105 H Respiratory 22 20 20 Rate Blood Pressure 131/93 O2 Sat by Pulse 97 Oximetry ED Medical Decision Making - Lab Data Result diagrams: 05/24/20 16:14 05/24/20 16:14 - Radiology Data Radiology results: report reviewed Negative CT - Medical Decision Making Patient sent for evaluation of possible kidney stone. She reports right lower back pain sometimes radiating to the groin since yesterday. On my exam she has tenderness in the right sciatic notch specifically and I suspect sciatica though UTI and stone are in the differential therefore labs and urine and CT will be obtained. Patient given Solu-Medrol Toradol and Percocet. Labs and urinalysis are clear, CT is negative for ureteral calculi or other acute findings, this is consistent with sciatica. There are no red flag signs or symptoms or findings on exam to suggest cord compression or spinal epidural abscess. Recommend supportive care and PCP follow-up. - Differential Diagnosis Sciatica, stone, UTI Critical care attestation.: If time is entered above; I have spent that time in minutes in the direct care of this critically ill patient, excluding procedure time. ED Disposition Clinical Impression: Sciatica Qualifiers: Laterality: right Qualified Code(s): M54.31 - Sciatica, right side Disposition: DC-01 TO HOME OR SELFCARE Is pt being admited?: No Condition: Good Instructions: Sciatica, [id number] Prescriptions: Cyclobenzaprine [Flexeril] 10 mg PO TID PRN #15 tablet PRN Reason: Muscle Spasm Naproxen [Naprosyn TAB] 500 mg PO BID PRN #20 tablet PRN Reason: Pain traMADoL [Ultram 50 MG tab] 50 mg PO Q6HR PRN #12 tablet PRN Reason: Pain Referrals: PRIMARY CARE,MD [Primary Care Provider] - 3-5 Days
[2020-05-24 17:24] LABS: HCG Qualitative,Urine Negative (Negative)
[2020-05-24 17:29] LABS: Bacteria,Urine 1+ /HPF (Negative); Bilirubin,Urine NEG (Negative); Blood,Urine SM (Negative); Color,Urine Yellow (Yellow); Mucus,Urine FEW /HPF; WBC,Urine < 1.0 /HPF (0.0-6.0)
--- NOTE | 2020-05-24 18:29 | Cat Scan Report ---
CT abdomen pelvis wo con INDICATION: R flank pain. TECHNIQUE: All CT scans at this location are performed using the following dose modulation technique: Automated exposure control. Helical slices were obtained through the abdomen and pelvis. No contrast is adminis tered. COMPARISON: None available. FINDINGS: Abdomen: No acute abnormality is seen in the lower chest. Liver, spleen, pancreas, adrenal glands, an d kidneys show no acute abnormality. The aorta is normal in diameter. There is no obstruction, inflam mation, or free air. There are no abnormal fluid collections. There is been prior cholecystectomy. Pelvis: There is no obstruction or inflammation. There are no abnormal fluid collections. There are n o renal or ureteral calculi. There is no hydronephrosis. On review of bone windows, no acute osseous abnormalities are seen. IMPRESSION: 1. There is no obstruction, inflammation, or free air. There are no abnormal fluid collections. No re nal or ureteral calculi are seen. Signer Name: Nehemiah Penn MD Signed: 05/24/2020 6:25 PM Workstation Name: [id number]
== END 2020-05-24 19:00 | disposition home or self-care (01) ==
LOC: ED 16:04
DX: M54.30 Sciatica, unspecified side (principal); K21.9 Gastro-esophageal reflux disease without esophagitis; G43.909 Migraine, unspecified, not intractable, without status migrainosus; Z90.49 Acquired absence of other specified parts of digestive tract; Z98.890 Other specified postprocedural states; Z79.1 Long term (current) use of non-steroidal anti-inflammatories (NSAID); Z79.899 Other long term (current) drug therapy
CPT/HCPCS: 36415; 74176; 80053; 81001; 81025; 85025; 96372; 99284; J1885; J2930

== ENCOUNTER 2021-04-10 12:00 | Emergency (ER) | payer MEDICAID ==
[2021-04-10 12:11] VITALS: BP 149/85
--- NOTE | 2021-04-10 13:04 | Emergency Department Report ---
- General Chief Complaint: Headache Stated Complaint: BILATERAL LEG WEAKNESS/HEADACHE/EAR Time Seen by Provider: 04/10/21 12:52 Source: patient Mode of arrival: Ambulatory Limitations: No Limitations - History of Present Illness Initial Comments: pt is a 30 yo female who presents to the ED with c/o a frontal headache that began a week ago. she states she has been taking her imitrex and naproxen without much relief. she states she also has left sided ear pain, tinnitus of the left ear, and generalized weakness. she states she did have a close sick contact with COVID 19. she states she did get vaccinated for COVID 19. she denies any v/d, vision changes, numbness, unilateral weakness, speech disturbance, gait disturbance, sob, cough, CP, fever, neck stiffness. pmhx migraines. no allergies to meds. - Related Data Previous Rx's Medication Instructions Recorded Last Taken Type Ibuprofen [Motrin] 800 mg PO Q8HR PRN #30 tablet 11/07/15 Unknown Rx traMADoL [Ultram 50 MG tab] 50 mg PO Q6HR PRN #10 tablet 11/17/16 Unknown Rx Ketorolac [Toradol] 10 mg PO Q6H PRN #20 tablet 02/09/17 Unknown Rx Metoclopramide [Reglan] 10 mg PO BID #10 tab 02/09/17 Unknown Rx Ibuprofen [Motrin] 800 mg PO Q8HR PRN #20 tablet 03/23/19 Unknown Rx Meclizine [Antivert] 25 mg PO Q8H PRN #30 tablet 03/23/19 Unknown Rx cephALEXin [Keflex] 500 mg PO Q8HR #30 cap 03/23/19 Unknown Rx Cyclobenzaprine [Flexeril] 10 mg PO TID PRN #15 tablet 05/24/20 Unknown Rx Naproxen [Naprosyn TAB] 500 mg PO BID PRN #20 tablet 05/24/20 Unknown Rx traMADoL [Ultram 50 MG tab] 50 mg PO Q6HR PRN #12 tablet 05/24/20 Unknown Rx Butalb/Acetaminophen/Caffeine 1 cap PO Q8HR PRN #12 cap 04/10/21 Unknown Rx [Fioricet 50-300-40 mg CAP] Ketorolac [Toradol] 10 mg PO Q6H PRN #8 tablet 04/10/21 Unknown Rx guaiFENesin ER [Mucinex ER] 600 mg PO Q12H #12 tablet.er 04/10/21 Unknown Rx Allergies Allergy/AdvReac Type Severity Reaction Status Date / Time No Known Allergies Allergy Verified 11/07/15 11:10 ED Review of Systems ROS: Stated complaint: BILATERAL LEG WEAKNESS/HEADACHE/EAR Other details as noted in HPI Comment: All other systems reviewed and negative ED Past Medical Hx - Past Medical History Hx Hypertension: No Hx Congestive Heart Failure: No Hx Diabetes: No Hx Deep Vein Thrombosis: No Hx GERD: Yes Hx Renal Disease: No Hx Sickle Cell Disease: No Hx Headaches / Migraines: Yes (MIGRAINES) Hx Seizures: No Hx Asthma: No Hx COPD: No Hx HIV: No - Surgical History Hx Cholecystectomy: Yes Additional Surgical History: laparoscopy, lipoma removed from lower back. BC implant-2017 - Social History Smoking Status: Never Smoker - Medications Home Medications: Home Medications Medication Instructions Recorded Confirmed Last Taken Type Ibuprofen [Motrin] 800 mg PO Q8HR PRN #30 tablet 11/07/15 Unknown Rx traMADoL [Ultram 50 MG tab] 50 mg PO Q6HR PRN #10 tablet 11/17/16 Unknown Rx Ketorolac [Toradol] 10 mg PO Q6H PRN #20 tablet 02/09/17 Unknown Rx Metoclopramide [Reglan] 10 mg PO BID #10 tab 02/09/17 Unknown Rx Ibuprofen [Motrin] 800 mg PO Q8HR PRN #20 tablet 03/23/19 Unknown Rx Meclizine [Antivert] 25 mg PO Q8H PRN #30 tablet 03/23/19 Unknown Rx cephALEXin [Keflex] 500 mg PO Q8HR #30 cap 03/23/19 Unknown Rx Cyclobenzaprine [Flexeril] 10 mg PO TID PRN #15 tablet 05/24/20 Unknown Rx Naproxen [Naprosyn TAB] 500 mg PO BID PRN #20 tablet 05/24/20 Unknown Rx traMADoL [Ultram 50 MG tab] 50 mg PO Q6HR PRN #12 tablet 05/24/20 Unknown Rx Butalb/Acetaminophen/Caffeine 1 cap PO Q8HR PRN #12 cap 04/10/21 Unknown Rx [Fioricet 50-300-40 mg CAP] Ketorolac [Toradol] 10 mg PO Q6H PRN #8 tablet 04/10/21 Unknown Rx guaiFENesin ER [Mucinex ER] 600 mg PO Q12H #12 tablet.er 04/10/21 Unknown Rx ED Physical Exam - General Limitations: No Limitations General appearance: alert, in no apparent distress - Head Head exam: Present: atraumatic, normocephalic - Eye Eye exam: Present: normal appearance, PERRL, EOMI. Absent: periorbital s welling, periorbital tenderness - ENT ENT exam: Present: normal orophraynx, mucous membranes moist, TM's normal bilaterally, normal external ear exam - Neck Neck exam: Present: normal inspection, full ROM. Absent: tenderness, meningismus - Respiratory Respiratory exam: Present: normal lung sounds bilaterally. Absent: respiratory distress, wheezes, rales, rhonchi, stridor, chest wall tenderness, accessory muscle use, decreased breath sounds, prolonged expiratory - Cardiovascular Cardiovascular Exam: Present: regular rate, normal rhythm, normal heart sounds. Absent: systolic murmur, diastolic murmur, rubs, gallop - Neurological Exam Neurological exam: Present: alert, oriented X3, CN II-XII intact, normal gait. Absent: motor sensory deficit - Psychiatric Psychiatric exam: Present: normal affect, normal mood - Skin Skin exam: Present: warm, dry, intact ED Course Vital Signs 04/10/21 12:08 Temperature 97.9 F Pulse Rate 87 Respiratory 16 Rate Blood Pressure 149/85 [Right] O2 Sat by Pulse 98 Oximetry ED Medical Decision Making - Medical Decision Making pt is a 30 yo female who presents to the ED with c/o a frontal headache that began a week ago. she states she has been taking her imitrex and naproxen without much relief. she states she also has left sided ear pain, tinnitus of the left ear, and generalized weakness. she states she did have a close sick contact with COVID 19. she states she did get vaccinated for COVID 19. she denies any v/d, vision changes, numbness, unilateral weakness, speech disturbance, gait disturbance, sob, cough, CP, fever, neck stiffness. pmhx migraines. no allergies to meds. Vitals are normal. Patient has no abnormality on physical exam as documented in chart. Patient has had no trauma, she has no neuro deficits, she has no fever or meningeal signs. Bilateral TMs and canals are normal in appearance. Patient given prescription for medication. Discussed the importance of outpatient primary care and ENT follow-up. Discussed return precautions. Advised patient please take medication as prescribed. do not take your naproxen while taking toradol. follow up with a primary care doctor. follow up with an nuclear plant technical advisor. return to the emergency room for any new or worsening symptoms. Critical care attestation.: If time is entered above; I have spent that time in minutes in the direct care of this critically ill patient, excluding procedure time. ED Disposition Clinical Impression: Left ear pain, Generalized weakness Headache Qualifiers: Headache type: unspecified Headache chronicity pattern: acute headache Intractability: not intractable Qualified Code(s): R51.9 - Headache, unspecified Tinnitus Qualifiers: Laterality: left Qualified Code(s): H93.12 - Tinnitus, left ear Disposition: 01 HOME / SELF CARE / HOMELESS Is pt being admited?: No Does the pt Need Aspirin: No Condition: Stable Instructions: Migraine Headache, [id number], Tinnitus, Earache, Adult Additional Instructions: please take medication as prescribed. do not take your naproxen while taking toradol. follow up with a primary care doctor. follow up with an nuclear plant technical advisor. return to the emergency room for any new or worsening symptoms. Prescriptions: Butalb/Acetaminophen/Caffeine [Fioricet 50-300-40 mg CAP] 1 cap PO Q8HR PRN #12 cap PRN Reason: headache guaiFENesin ER [Mucinex ER] 600 mg PO Q12H #12 tablet.er Ketorolac [Toradol] 10 mg PO Q6H PRN #8 tablet PRN Reason: headache Referrals: your, primary care doctor [Other] - 3-5 Days MIRANDA APONTE MD [Staff Physician] - 3-5 Days BRITNEY ELAM MD [Referring] - 3-5 Days Time of Disposition: 13:05 Print Language: [place]
== END 2021-04-10 13:34 | disposition home or self-care (01) ==
LOC: ED 12:00
DX: H93.12 Tinnitus, left ear (principal); G43.909 Migraine, unspecified, not intractable, without status migrainosus; H92.02 Otalgia, left ear; R53.1 Weakness; K21.9 Gastro-esophageal reflux disease without esophagitis; Z98.890 Other specified postprocedural states
CPT/HCPCS: 99282